=== PATIENT | female | born 1985 | race American Indian/Alaskan Native ===

== ENCOUNTER 2020-08-29 14:47 | Emergency (ER) | payer SELFPAY ==
[2020-08-29 15:00] VITALS: BP 129/68
--- NOTE | 2020-08-29 15:03 | Event Note ---
ED Screening Note Date of service: 08/29/20 Time: 15:03 ED Screening Note: stomach pain since 07/25 across lower abdomen. Blurred vision for three days. Blood in urine this AM. This initial assessment/diagnostic orders/clinical plan/treatment(s) is/are subject to change based on patients health status, clinical progression and re- assessment by fellow clinical providers in the ED. Further treatment and workup at subsequent clinical providers discretion. Patient/guardian urged not to elope from the ED as their condition may be serious if not clinically assessed and managed. Initial orders include: CBC, CMP, lipase, Urinalysis, HCG
[2020-08-29 15:53] LABS: Basophils # (Auto) 0.1 K/mm3 (0.0-0.1); Basophils % (Auto) 1.1 % (0.0-1.8); Eosinophils # (Auto) 0.2 K/mm3 (0.0-0.4); Eosinophils % (Auto) 2.7 % (0.0-4.3); Lymphocytes # (Auto) 2.3 K/mm3 (1.2-5.4); Mean Corpuscular HGB Conc 29 % (30-34); Monocytes # (Auto) 0.8 K/mm3 (0.0-0.8); Monocytes % (Auto) 9.3 % (0.0-7.3); Platelet Count 391 K/mm3 (140-440); Red Blood Count 4.54 M/mm3 (3.65-5.03); Red Cell Distribution Width 17.9 % (13.2-15.2)
[2020-08-29 16:02] LABS: Hematocrit 28.2 % (30.3-42.9); Hemoglobin 8.3 gm/dl (10.1-14.3); Mean Corpuscular Volume 62 fl (79-97)
[2020-08-29 16:28] LABS: Alanine Aminotransferase 7 units/L (7-56); Albumin 4.4 g/dL (3.9-5); Blood Urea Nitrogen 5 mg/dL (7-17); Calcium 9.2 mg/dL (8.4-10.2); Hemolysis Index 1
[2020-08-29 16:40] LABS: BUN/Creatinine Ratio 8
--- NOTE | 2020-08-29 17:23 | Emergency Department Report ---
HPI - General Chief Complaint: Abdominal Pain Time Seen by Provider: 08/29/20 17:08 - HPI HPI: This is a 35-year-old -[place] female presents to the emergency department with a few different complaints. First, the patient complains of abdominal pain "across my navel to both sides" that has been going on since the end of last month, about 3 weeks. Secondly, this morning the patient noticed some blood in her urine. Thirdly, the patient has some intermittent generalized headaches over the past 2 days and when this occurs the patient also says that she gets some transient blurry vision. At the time of my examination the patient denies any headache or blurry vision. She denies any fever, chest pain, shortness of breath, vaginal bleeding or discharge, burning with urination. She has a past medical history of anemia and previous ectopic , with a surgical history of a . Her last menstrual cycle was August 13. The patient tried some Goody's powder for her symptoms without any relief. No known aggravating or alleviating factors. No recent travel or sick contacts at home. ED Past Medical Hx - Past Medical History Previous Medical History?: Yes Hx Asthma: Yes Additional medical history: Anemia. ectopic - Surgical History Past Surgical History?: Yes Additional Surgical History: C section - Social History Smoking Status: Unknown if ever smoked Substance Use Type: None - Medications Home Medications: Home Medications Medication Instructions Recorded Confirmed Last Taken Type Docusate Sodium [Colace] 100 mg PO BID PRN #20 capsule 08/29/20 Unknown Rx Nitrofurantoin [place]/M-Cryst 100 mg PO Q12HR #14 capsule 08/29/20 Unknown Rx [Macrobid CAP] ED Review of Systems ROS: Stated complaint: ABD PAINS BLURRED VISION Other details as noted in HPI Comment: All other systems reviewed and negative Constitutional: denies: chills, fever Eyes: vision change. denies: eye pain ENT: denies: ear pain, throat pain Respiratory: denies: cough, shortness of breath Cardiovascular: denies: chest pain, palpitations Gastrointestinal: abdominal pain. denies: vomiting Genitourinary: denies: dysuria, discharge Musculoskeletal: denies: back pain, arthralgia Skin: denies: rash, lesions Neurological: headache. denies: weakness, numbness Physical Exam - Physical Exam Vital Signs: Vital Signs 08/29/20 08/29/20 14:54 15:00 Temperature 99.0 F Pulse Rate 79 68 Respiratory 16 Rate Blood Pressure 129/68 [Right] O2 Sat by Pulse 100 Oximetry Physical Exam: GENERAL: The patient is well-developed well-nourished. HENT: Normocephalic. Atraumatic. Patient has moist mucous membranes. EYES: Extraocular motions are intact. No nystagmus. NECK: Supple. Trachea is midline. CHEST/LUNGS: Clear to auscultation. There is no respiratory distress noted. HEART/CARDIOVASCULAR: Regular. There is no tachycardia. There is no murmur. ABDOMEN: Abdomen is soft. There is some mild generalized abdominal tenderness to palpation. No guarding. No peritoneal signs. Patient has normal bowel sounds. There is no abdominal distention. SKIN: Skin is warm and dry. NEURO: The patient is awake, alert, and oriented. The patient is cooperative. The patient has no focal neurologic deficits. Normal speech. Cranial nerves II through XII grossly intact. MUSCULOSKELETAL: There is no tenderness or deformity. There is no limitation range of motion. BACK: No CVA tenderness to palpation. ED Course Vital Signs 08/29/20 08/29/20 14:54 15:00 Temperature 99.0 F Pulse Rate 79 68 Respiratory 16 Rate Blood Pressure 129/68 [Right] O2 Sat by Pulse 100 Oximetry - Reevaluation(s) Reevaluation #1: 08/29/20 20:18 Lab Results 08/29/20 08/29/20 08/29/20 Range/Units 15:40 15:40 Unknown WBC 8.2 (4.5-11.0) K/mm3 RBC 4.54 (3.65-5.03) M/mm3 Hgb 8.3 L (10.1-14.3) gm/dl Hct 28.2 L (30.3-42.9) % MCV 62 L (79-97) fl MCH 18 L (28-32) pg MCHC 29 L (30-34) % RDW 17.9 H (13.2-15.2) % Plt Count 391 (140-440) K/mm3 Lymph % (Auto) 28.0 (13.4-35.0) % [place] % (Auto) 9.3 H (0.0-7.3) % Eos % (Auto) 2.7 (0.0-4.3) % Baso % (Auto) 1.1 (0.0-1.8) % Lymph # (Auto) 2.3 (1.2-5.4) K/mm3 [place] # (Auto) 0.8 (0.0-0.8) K/mm3 Eos # (Auto) 0.2 (0.0-0.4) K/mm3 Baso # (Auto) 0.1 (0.0-0.1) K/mm3 Seg Neutrophils % 58.9 (40.0-70.0) % Seg Neutrophils # 4.8 (1.8-7.7) K/mm3 Sodium 139 (137-145) mmol/L Potassium 3.7 (3.6-5.0) mmol/L Chloride 104.2 (98-107) mmol/L Carbon Dioxide 25 (22-30) mmol/L Anion Gap 14 mmol/L BUN 5 L (7-17) mg/dL Creatinine 0.6 (0.6-1.2) mg/dL Estimated GFR > 60 ml/min BUN/Creatinine Ratio 8 % Glucose 91 (65-100) mg/dL Calcium 9.2 (8.4-10.2) mg/dL Total Bilirubin 0.30 (0.1-1.2) mg/dL AST 15 (5-40) units/L ALT 7 (7-56) units/L Alkaline Phosphatase 54 (35-129) units/L Total Protein 8.0 (6.3-8.2) g/dL Albumin 4.4 (3.9-5) g/dL Albumin/Globulin Ratio 1.2 % Urine Color Yellow (Yellow) Urine Turbidity Cloudy (Clear) Urine pH 6.0 (5.0-7.0) Ur Specific [place] 1.012 (1.003-1.030) Urine Protein <15 mg/dl (Negative) mg/dL Urine Glucose (UA) Neg (Negative) mg/dL Urine Ketones Neg (Negative) mg/dL Urine Blood Sm (Negative) Urine Nitrite Neg (Negative) Urine Bilirubin Neg (Negative) Urine Urobilinogen < 2.0 (<2.0) mg/dL Ur Leukocyte Esterase Lg (Negative) Urine WBC (Auto) > 182.0 H (0.0-6.0) /HPF Urine RBC (Auto) 6.0 (0.0-6.0) /HPF U Epithel Cells (Auto) 16.0 H (0-13.0) /HPF Urine Mucus Few /HPF Urine HCG, Qual Negative (Negative) ED Medical Decision Making - Lab Data Result diagrams: 08/29/20 15:40 08/29/20 15:40 - Radiology Data Radiology results: image reviewed interpreted by me: Abdominal x-ray shows nonspecific nonobstructive bowel gas. There is increased stool volume. - Medical Decision Making This patient presents with some lower abdominal pain. On examination there is some reproducible generalized tenderness to palpation, but overall the abdomen is soft, nondistended and nontoxic in appearance. Abdominal x-ray shows nonspecific nonobstructive bowel gas and increased stool volume. Patient's labs are mostly unremarkable including CBC, metabolic panel and the patient is negative for . However she does have a significant urinary tract infection. Between the UTI, as well as the increased stool volume, this could be the reason for the patient's abdominal discomfort. She has been started on Macrobid and been given Colace. The patient mentioned that she has been having some intermittent headaches and intermittent blurred vision. However, the patient says that she is asymptomatic from this at this time. On examination she does not have any focal, motor or sensory deficits and her cranial nerves are intact. For all these reasons I did not feel that the patient required CT imaging of the head at this time. Patient will be discharged home to follow-up with primary care and has been given a prescription for the antibiotic and the Colace. Vital signs have been reassuring throughout her ED course including being afebrile. Critical Care Time: No Critical care attestation.: If time is entered above; I have spent that time in minutes in the direct care of this critically ill patient, excluding procedure time. ED Disposition Clinical Impression: Increased stool volume, Intermittent headache UTI (urinary tract infection) Qualifiers: Urinary tract infection type: acute cystitis Hematuria presence: without hematuria Qualified Code(s): N30.00 - Acute cystitis without hematuria Disposition: TO HOME OR SELFCARE Is pt being admited?: No Condition: Stable Instructions: Abdominal Pain, Adult, Constipation, Adult, Urinary Tract Infection, Adult, Abdominal Pain (ED) Additional Instructions: Please follow-up with a primary care physician in the next few days. Take the medications as prescribed. Increase your oral rehydration. Return to the emergency department with any worsening of your symptoms, new or concerning symptoms not addressed during this current emergency department visit, or with any acute distress. Prescriptions: Docusate Sodium [Colace] 100 mg PO BID PRN #20 capsule PRN Reason: Constipation Nitrofurantoin [place]/M-Cryst [Macrobid CAP] 100 mg PO Q12HR #14 capsule Referrals: BRETT ANDRADE MD [Staff Physician] - 3-5 Days [facility] [Provider Group] - 3-5 Days Time of Disposition: 18:41
[2020-08-29 17:50] LABS: Bilirubin,Urine NEG (Negative); Blood,Urine SM (Negative); Color,Urine Yellow (Yellow); Mucus,Urine FEW /HPF; Protein,Urine <15 mg/dL mg/dL (Negative); Urobilinogen,Urine < 2.0 mg/dL (<2.0)
[2020-08-29 17:51] LABS: WBC,Urine > 182.0 /HPF (0.0-6.0)
[2020-08-29 17:52] LABS: HCG Qualitative,Urine Negative (Negative)
[2020-08-29] MEDS ORDERED: NITROFURANTOIN MONOHYD/M-CRYST 100 MG CAP PO ONE (17:53)
--- NOTE | 2020-08-29 18:32 | XRay Report ---
ABDOMEN 3 VIEW(S) INDICATION / CLINICAL INFORMATION: Abd pain. COMPARISON: None available. FINDINGS: TUBES / LINES: None. BOWEL GAS PATTERN: Nonobstructive bowel gas pattern. Abundant fecal material noted within the ascendi ng and transverse colon. FREE AIR / EXTRALUMINAL GAS: None seen. ADDITIONAL FINDINGS: The inferior hepatic margin reaches the right iliac on upright images. CHEST: Visualized chest shows no significant abnormality. IMPRESSION: 1. Nonobstructive bowel gas pattern. 2. Abundant fecal material within the ascending and transverse colon. Clinical correlation for consti pation is recommended. 3. Hepatomegaly versus Fareed's lobe of the liver. Signer Name: Nader Jacome MD Signed: 08/29/2020 6:27 PM Workstation Name: [id number]
== END 2020-08-29 18:49 | disposition home or self-care (01) ==
LOC: ED 14:47
DX: N39.0 Urinary tract infection, site not specified (principal); R19.5 Other fecal abnormalities; R51.9 Headache, unspecified; D64.9 Anemia, unspecified; J45.909 Unspecified asthma, uncomplicated; Z79.899 Other long term (current) drug therapy; Z98.890 Other specified postprocedural states; Z88.0 Allergy status to penicillin
CPT/HCPCS: 36415; 74019; 80053; 81001; 81025; 85025